=== PATIENT | female | born 1980 | race Caucasian/White ===

== ENCOUNTER → 2017-03-25 | Outpatient (CLI) | payer OTHER | END | disposition home or self-care (01) | LOC: RAD 14:54 | DX: M41.35 Thoracogenic scoliosis, thoracolumbar region (principal); M48.04 Spinal stenosis, thoracic region ==

== ENCOUNTER → 2017-03-26 | Outpatient (CLI) | payer OTHER | END | disposition home or self-care (01) | LOC: RAD 10:15 | DX: G60.0 Hereditary motor and sensory neuropathy (principal); M79.672 Pain in left foot; M79.671 Pain in right foot ==

== ENCOUNTER → 2017-10-24 | Outpatient (CLI) | payer OTHER | END | disposition home or self-care (01) | LOC: RAD 12:55 | DX: M79.89 Other specified soft tissue disorders (principal); G60.0 Hereditary motor and sensory neuropathy; M79.671 Pain in right foot; M79.672 Pain in left foot ==

== ENCOUNTER → 2017-10-25 | Outpatient (CLI) | payer OTHER | END | disposition home or self-care (01) | LOC: CARD 03:34 | DX: I51.7 Cardiomegaly (principal) ==